=== PATIENT | male | born 1940 | race Hispanic/Latino ===

== ENCOUNTER → 2018-04-06 | Emergency (ER) | payer MEDICARE ==
[~2018-04-06] VITALS: Ht 182.9 cm; Wt 83.9 kg
[~2018-04-06] MED LIST: ASPIRIN 81 MG CHEW TAB PO ONE
--- OUTSIDE RECORDS SUMMARY | 2018-04-06 10:58 | XMS REPORT | Clinical Summary ---
Author Author [facility] Address Unknown Phone Unavailable Care Team Providers Care Flume Tender Name Role Phone Pcp, No PCP Unavailable Allergies No Known Allergies Medications End Date Status Medication Sig Dispensed Refills Start Date Active aspirin-calcium carbonate Take 81 mg by 0 81 mg-300 mg calcium(777 mouth. mg) Tab Active lisinopril Take 10 mg by 0 //201 (PRINIVIL,ZESTRIL) 10 MG mouth. 7 tablet Active oxybutynin (DITROPAN-XL) Take 10 mg by 0 08/12/ 10 MG 24 hr tablet mouth. 8 Active simvastatin (ZOCOR) 20 MG TAKE ONE 0 /16/201 tablet TABLET BY 8 MOUTH AT BEDTIME Active omeprazole (PRILOSEC) 40 Take 40 mg by 0 //201 MG capsule mouth. 8 Active tamsulosin (FLOMAX) 0.4 TAKE ONE 0 /14/201 mg Cap 24 hr capsule CAPSULE BY 8 MOUTH EVERY DAY Active Problems Not on file Encounters Care Team Description Date Type Specialty Roseline Parekh MD Laceration of left wrist, initial encounter (Primary Dx); Injury of left wrist, initial encounter 11/10/2017 Emergency Emergency Medicine after 04/05/2017 Social History Date Tobacco Use Types Packs/Day Years Used Never Smoker Smokeless Tobacco: Never Used Alcohol Use Drinks/Week oz/Week Comments Yes Sex Assigned at Date Recorded Not on file Industry Job Start Date Occupation Not on file Not on file Not on file Travel End Travel History Travel Start No recent travel history available. Last Filed Vital Signs Time Taken Vital Sign Reading 11/10/2017 12:36 PM CDT Blood Pressure 157/88 11/10/2017 12:36 PM CDT Pulse 92 11/10/2017 12:36 PM CDT Temperature 36.7 C (98 F) 11/10/2017 12:36 PM CDT Respiratory Rate 16 11/10/2017 12:36 PM CDT Oxygen Saturation 96% - Inhaled Oxygen - Concentration - Weight - - Height - - Body Mass Index - Plan of Treatment Not on file Procedures Comments Procedure Name Priority Date/Time Associated Diagnosis HI RESUP NPTERF WND BODY Routine 11/10/2017 2.6-7.5 CM 1:22 PM CDT after 04/05/2017 Results * LACERATION REPAIR (11/10/2017 1:22 PM CDT) Narrative Performed At Roseline Parekh MD 11/10/20171:22 PM Lac Repair Date/Time: 11/10/2017 1:21 PM Performed by: ROSELINE PAREKH Authorized by: ROSELINE PAREKH Consent: Verbal consent obtained. Risks and benefits: risks, benefits and alternatives were discussed Consent given by: patient Patient understanding: patient states understanding of the procedure being performed Patient identity confirmed: verbally with patient, arm band, hospital-assigned identification number and provided demographic data Body area: upper extremity Location details: left wrist Laceration length: 4 cm Foreign bodies: no foreign bodies Tendon involvement: none Nerve involvement: none Vascular damage: no Anesthesia: local infiltration Anesthesia: Local Anesthetic: lidocaine 1% without epinephrine Anesthetic total: 2 mL Sedation: Patient sedated: no Preparation: Patient was prepped and draped in the usual sterile fashion. Irrigation solution: tap water Irrigation method: tap Amount of cleaning: standard Debridement: none Degree of undermining: none Skin closure: 6-0 Prolene Number of sutures: 1 Technique: running Approximation: close Approximation difficulty: simple Dressinx4 sterile gauze Patient tolerance: Patient tolerated the procedure well with no immediate complications Immediate Post-Procedure Note Date/Time: 11/10/2017 1:21 PM Assistants to the procedure: None Pre-procedure diagnosis: left wrist laceration Post-procedure diagnosis: same Procedures Performed: Lac Repair Specimens removed: None Estimated blood loss (mL): None Complications: None Type of anesthesia: None Grafts or Implants: None after 04/05/2017 Insurance Payer Benefit Subscriber ID Type Phone Address Plan / Group [facility] xxxxxxxxxxx MEDICARE ADV
[2018-04-06 11:58] LABS: BASOPHILS # (AUTO) 0.1 (0.0-0.1); EOSINOPHILS # (AUTO) 0.1 (0.0-0.4); EOSINOPHILS % 2.4 % (0.0-6.0); HEMATOCRIT 45.5 % (38.2-49.6); HEMOGLOBIN 15.7 g/dL (14.0-18.0); LYMPHOCYTES # (AUTO) 1.5 (1.0-3.2); LYMPHOCYTES % 29.4 % (18.0-39.1); MEAN CORPUSCULAR HEMOGLOBIN 33.8 pg (28-32); MEAN CORPUSCULAR HGB CONC 34.5 g/dL (31-35); MEAN CORPUSCULAR VOLUME 97.8 fL (81-99); MONOCYTES # (AUTO) 0.5 (0.2-0.8); MONOCYTES % 9.9 % (4.4-11.3); NEUTROPHILS # (AUTO) 2.9 (2.1-6.9); NEUTROPHILS % 56.9 % (38.7-80.0); PLATELET COUNT 195 x10e3/uL (140-360); RED BLOOD COUNT 4.65 x10e6/uL (4.3-5.7); RED CELL DISTRIBUTION WIDTH 12.2 % (11.7-14.4)
[2018-04-06 12:25] LABS: ALANINE AMINOTRANSFERASE 15 IU/L (0-55); ALBUMIN 3.7 g/dL (3.5-5.0); ALBUMIN/GLOBULIN RATIO 1.3 (0.8-2.0); ALKALINE PHOSPHATASE 65 IU/L (40-150); BLOOD UREA NITROGEN 12 mg/dL (7-26); BUN/CREATININE RATIO 14 (6-25); CALCIUM 8.7 mg/dL (8.4-10.2); CARBON DIOXIDE 26 mmol/L (22-29); CHLORIDE 102 mmol/L (98-107); CREATINE KINASE 69 IU/L (30-200); CREATININE, SERUM 0.88 mg/dL (0.72-1.25); EST GLOMERULAR FILTRATION RATE > 60 ML/MIN (60-); GLUCOSE 104 mg/dL (74-118); SODIUM 137 mmol/L (136-145)
--- NOTE | 2018-04-06 12:37 | Diagnostic Imaging Report ---
EXAMINATION: CHEST SINGLE (PORTABLE) INDICATION: Chest pain COMPARISON: None FINDINGS: AP view TUBES and LINES: None. LUNGS: Lungs are well inflated. Lungs are clear. There is no evidence of pneumonia or pulmonary edema. PLEURA: No pleural effusion or pneumothorax. HEART AND MEDIASTINUM: The cardiomediastinal silhouette is unremarkable. BONES AND SOFT TISSUES: No acute osseous lesion. Soft tissues are unremarkable. Bilateral nipple shadows. UPPER ABDOMEN: No free air under the diaphragm. IMPRESSION: No acute thoracic abnormality. Signed by: Dr. Bao Royal M.D. on 04/06/2018 12:33 PM
== END | disposition home or self-care (01) ==
LOC: ER 10:56
DX: R07.89 Other chest pain (principal)
CPT/HCPCS: 36415; 71045; 80053; 82550; 82553; 84484; 85025; 93005; 99284

== ENCOUNTER 2018-06-27 10:46 | Emergency (ER) | payer MEDICARE ==
[~2018-06-27] VITALS: Ht 182.9 cm; Wt 74.8 kg
--- OUTSIDE RECORDS SUMMARY | 2018-06-27 10:48 | XMS REPORT | Clinical Summary ---
Author Author [facility] Address Unknown Phone Unavailable Care Team Providers Care Hydrodynamicist Name Role Phone Pcp, No PCP Unavailable [...] initial encounter 11/10/2017 Emergency Emergency Medicine after 06/26/2017 Social History Date Tobacco Use Types Packs/Day [...] 11/10/2017 2.6-7.5 CM 1:22 PM CDT after 06/26/2017 Results * LACERATION REPAIR (11/10/2017 1:22 PM [...] anesthesia: None Grafts or Implants: None after 06/26/2017 Insurance Payer Benefit Subscriber ID Type Phone Address Plan / Group [facility] xxxxxxxxxxx MEDICARE ADV
--- OUTSIDE RECORDS SUMMARY | 2018-06-27 10:48 | XMS REPORT ---
Author Author [facility] Address Unknown Phone Unavailable Care Team Providers Care Assistant Corporate Controller Name Role Phone Leonila MILLS Unavailable Unavailable Problems This patient has no known problems. Allergies, Adverse Reactions, Alerts This patient has no known allergies or adverse reactions. Medications This patient has no known medications. Results Test Description Test Time Test Comments Text Results Atomic Results Result Comments CHEST SINGLE (PORTABLE) 2018-04-06 12:31:00 [place] [id number] Patient Name: JAYJAY CORDOVA MR #: [id number] : 1940 Age/Sex: 77/M Req #: [id number] Adm Physician: Ordered by: ADILSON MILLS MD Report #: [id number] Location: ER Room/Bed: Procedure: [id number] DX/CHEST SINGLE (PORTABLE) Exam Date: 04/06/18 Exam Time: 1214 REPORT STATUS: Signed EXAMINATION: CHEST SINGLE (PORTABLE) INDIC ATION: Chest pain COMPARISON: None FINDINGS: AP view TUBES and LINES: None. LUNGS: Lungs are well inflated. Lungs are clear. There is no evidence of pneumonia or pulmonary edema. PLEURA: No pleural effusion or pneumothorax. HEART AND MEDIASTINUM: The cardiomediastinal silhouette is unremarkable. BONES AND SOFT TISSUES: No acute osseous lesion. Soft tissues are unremarkable. Bilateral nipple shadows. UPPER ABDOMEN: No free air under the diaphragm. IMPRESSION: No acute thoracic abnormality. Signed by: Dr. Jonathan Royal M.D. on 04/06/2018 12:33 PM Dictated By: JONATHAN ROYAL MD [id number] Transcribed By: SAMI on 04/06/18 1233 COPY TO: ADILSON MILLS MD
[2018-06-27] MEDS ORDERED: SODIUM CHLORIDE 0.9% 1000ML 1,000 ML IV STA (11:20)
[2018-06-27] MEDS ORDERED: MORPHINE SULFATE INJ 4 MG/ML INJ 1ML IV STA (11:20)
[2018-06-27] MEDS ORDERED: ONDANSETRON HCL INJ 2MG/ML 2ML 2 MG/ML VIAL IV STA (11:20)
[2018-06-27] MEDS ORDERED: SIMVASTATIN20 MG PO (11:22)
[2018-06-27] MEDS ORDERED: ASPIR 8181 MG PO (11:22)
[2018-06-27] MEDS ORDERED: DITROPAN XL10 MG PO (11:22)
[2018-06-27] MEDS ORDERED: LISINOPRIL10 MG PO (11:22)
[2018-06-27] MEDS ORDERED: FLOMAX0.4 MG PO (11:22)
[2018-06-27] MEDS ORDERED: OMEPRAZOLE40 MG PO (11:22)
[2018-06-27 11:51] LABS: BASOPHILS % 0.2 % (0.0-1.0); EOSINOPHILS # (AUTO) 0.2 (0.0-0.4); HEMATOCRIT 48.3 % (38.2-49.6); HEMOGLOBIN 16.6 g/dL (14.0-18.0); LYMPHOCYTES # (AUTO) 1.1 (1.0-3.2); LYMPHOCYTES % 10.2 % (18.0-39.1); MEAN CORPUSCULAR HEMOGLOBIN 34.3 pg (28-32); MEAN CORPUSCULAR HGB CONC 34.4 g/dL (31-35); MEAN CORPUSCULAR VOLUME 99.8 fL (81-99); MONOCYTES # (AUTO) 0.8 (0.2-0.8); NEUTROPHILS # (AUTO) 8.2 (2.1-6.9); NEUTROPHILS % 79.2 % (38.7-80.0); PLATELET COUNT 173 x10e3/uL (140-360); RED BLOOD COUNT 4.84 x10e6/uL (4.3-5.7)
[2018-06-27 11:56] LABS: CLARITY,URINE CLEAR (CLEAR); COLOR,URINE YELLOW (YELLOW); LEUKOCYTE ESTERASE ,URINE NEGATIVE (NEGATIVE); NITRITE,URINE NEGATIVE (NEGATIVE); PROTEIN,URINE DIPSTICK NEGATIVE (NEGATIVE)
[2018-06-27 11:57] LABS: BILIRUBIN,URINE NEGATIVE (NEGATIVE); KETONES,URINE NEGATIVE (NEGATIVE); URINE UROBILINOGEN 0.2 mg/dL (0.2 - 1)
[2018-06-27 12:04] LABS: ALANINE AMINOTRANSFERASE 13 IU/L (0-55); ALBUMIN 3.4 g/dL (3.5-5.0); ALKALINE PHOSPHATASE 57 IU/L (40-150); AMYLASE 92 U/L (25-125); BLOOD UREA NITROGEN 11 mg/dL (7-26); BUN/CREATININE RATIO 12 (6-25); CARBON DIOXIDE 29 mmol/L (22-29); CHLORIDE 102 mmol/L (98-107); CREATININE, SERUM 0.93 mg/dL (0.72-1.25); EST GLOMERULAR FILTRATION RATE > 60 ML/MIN (60-); GLUCOSE 94 mg/dL (74-118); LIPASE 52 U/L (8-78); SODIUM 138 mmol/L (136-145)
--- NOTE | 2018-06-27 15:24 | Diagnostic Imaging Report ---
EXAM: CT Abdomen and Pelvis WITH contrast INDICATION: Abdominal pain, diarrhea COMPARISON: CT abdomen/pelvis with contrast 03/25/2012. TECHNIQUE: Abdomen and pelvis were scanned utilizing a multidetector helical scanner from the lung base to the pubic symphysis after administration of IV contrast. Coronal and sagittal reformations were obtained. Routine protocol was performed. Scan was performed when during portal venous phase. IV CONTRAST: 100 mL of Isovue 370 ORAL CONTRAST: Water COMPLICATIONS: None RADIATION DOSE: Total DLP: 322 mGy*cm Estimated effective dose: (DLP x 0.015 x size factor) mSv CTDIvol has been reviewed. It is below the limits set by the Radiation Protocol Committee (RPC). Dose modulation, iterative reconstruction, and/or weight based adjustment of the mA/kV was utilized to reduce the radiation dose to as low as reasonably achievable. FINDINGS: LINES and TUBES: None. LOWER THORAX: Unremarkable HEPATOBILIARY: No evidence of focal lesion. No biliary ductal dilation. GALLBLADDER: Not visualized. SPLEEN: No splenomegaly. PANCREAS: No focal masses or ductal dilatation. ADRENALS: No adrenal nodules KIDNEYS/URETERS: Kidneys enhance symmetrically. No evidence of hydronephrosis, solid mass, or stone. Subcentimeter left renal hypodensity is too small to characterize, but likely represents a cyst. GI TRACT: No evidence of bowel obstruction. There is diffuse colonic wall thickening. Small bowel loops are unremarkable. There are surgical clips at the gastroesophageal junction. Normal appendix. PELVIC ORGANS/BLADDER: The bladder is partially decompressed. The prostate is enlarged, measuring up to 5.4 cm. LYMPH NODES: No lymphadenopathy. VESSELS: There are scattered atherosclerotic calcifications in the aorta and branch vessels. PERITONEUM / RETROPERITONEUM: No free air or fluid. BONES AND SOFT TISSUES: No acute osseous abnormality. No suspicious lytic or blastic lesions. Degenerative changes of the visualized spine. Fat-containing of local hernia. Likely interval repair of previously noted supraumbilical hernia. There are postsurgical changes of prior ventral hernia repair with mild ballooning of the anterior/superior aspect of the abdomen, unchanged. CONCLUSION: Findings of diffuse mild colonic wall thickening, consistent with colitis, which may be infectious or inflammatory. Signed by: Dr. Sheldon Briceno MD on 06/27/2018 3:20 PM
== END 2018-06-27 16:38 | disposition home or self-care (01) ==
LOC: ER 10:46
DX: R10.33 Periumbilical pain (principal); R11.0 Nausea; R19.7 Diarrhea, unspecified; K52.9 Noninfective gastroenteritis and colitis, unspecified
CPT/HCPCS: 36415; 74177; 80053; 81001; 82150; 83690; 85025; 99284; J2405; J7030

== ENCOUNTER 2023-11-27 11:07 | Emergency (ER) | payer MEDICARE ==
[~2023-11-27] VITALS: Ht 182.9 cm; Wt 74.8 kg
[~2023-11-27 11:07] MED LIST changes: +ASPIR 8181 MG PO; -ASPIRIN 81 MG CHEW TAB PO ONE; +DITROPAN XL10 MG PO; +FLOMAX0.4 MG PO; +LISINOPRIL10 MG PO; +OMEPRAZOLE40 MG PO; +SIMVASTATIN20 MG PO
[2023-11-27 11:23] VITALS: TEMP 98.2
[2023-11-27 12:29] LABS: BILIRUBIN,URINE SMALL (NEGATIVE); CLARITY,URINE CLEAR (CLEAR); COLOR,URINE YELLOW (YELLOW); GLUCOSE, URINE NEGATIVE (NEGATIVE); KETONES,URINE TRACE (NEGATIVE); LEUKOCYTE ESTERASE ,URINE SMALL (NEGATIVE); NITRITE,URINE NEGATIVE (NEGATIVE); PH,URINE 6 (5 - 7); PROTEIN,URINE DIPSTICK TRACE (NEGATIVE)
[2023-11-27 12:31] LABS: BACTERIA,URINE FEW /HPF; EPITHELIAL CELLS,URINE MODERATE /LPF
[2023-11-27 13:30] VITALS: PULSE 77; RESP 16
[2023-11-27] MEDS ORDERED: CIPRO500 MG PO (13:45)
[2023-11-27 14:10] VITALS: BP 136/90; PULSE 81; RESP 16; O2SAT 99
== END 2023-11-27 14:10 | disposition home or self-care (01) ==
LOC: ER 11:12
DX: N45.3 Epididymo-orchitis (principal); I10 Essential (primary) hypertension
CPT/HCPCS: 76870; 81001; 87086; 93976; 99283